=== PATIENT | male | born 1945 | race Caucasian/White ===

== ENCOUNTER 2016-08-19 07:44 | Day surgery (SDC) | payer MEDICARE, BC ==
[2016-08-19] MEDS ORDERED: Sodium Chloride 0.9% 5 ML Syringe FLUSH PRN (08:00)
[2016-08-19] MEDS ORDERED: Lactated Ringers 1,000 ML IV SCH (08:00)
[2016-08-19] MEDS ORDERED: Propofol 200 MG/20 ML SDV ONE ×2 (08:15→10:20)
[2016-08-19] MEDS ORDERED: Midazolam 1 MG/ML 2 ML SDV ONE ×2 (08:16→10:20)
[2016-08-19] MEDS ORDERED: fentaNYL 100 MCG/2 ML SDV ONE ×2 (08:16→10:20)
[2016-08-19] MEDS ORDERED: EPINEPHrine 1:10,000 1 MG/10 ML Syringe ONE (09:29)
[2016-08-19] MEDS ORDERED: EPINEPHrine 1:1000 1 MG/ML SDV ONE (09:30)
[2016-08-19] MEDS ORDERED: Ondansetron 4 MG/2 ML SDV ONE (10:20)
--- NOTE | 2016-08-19 10:43 | PCM.OPNOTE ---
- General Post-Op/Procedure Note Date of Surgery/Procedure: 08/19/16 Operative Procedure(s): Bilateral myringotomy Findings: Bilateral chronic serous otitis media is observed Pre Op Diagnosis: Chronic serous otitis media. Recurrent Post-Op Diagnosis: As above Anesthesia Technique: MAC Primary Surgeon: Ramon Lujan Complications: None Free Text/Narrative:: Preoperative diagnosis: Chronic serous otitis media bilaterally. Recurrent. Postoperative diagnosis: As above Procedure performed: Bilateral myringotomy. Procedure: informed consent was obtained and the patient regarding this procedure. He has had this done before. All possible complications were thoroughly discussed. anesthetic complications were addressed by the buildings and grounds supervisor. The patient was taken to the or and kept in the supine position. A satisfactory general Street was administered via nasal mask. The patient's head was turned to the left side. An ear speculum was placed into the right ear canal and using the otoscope, the tympanic membrane was clearly visualized. There was evidence of chronic otitis media present. Air bubbles are seen in the inferior portion of the tympanic membrane which was dull. the upper portion of the TM was retracted. A myringotomy incision was made in the inferior, posterior quadrant and a moderate quantity of gelatinous material was aspirated. The patient tolerated the procedure well. This procedure was repeated on the left side. This ear was not as bad as the right side. The patient tolerated the procedure well. he was transferred to the recover room in an excellent condition.
[2016-08-19 11:46] VITALS: BP 152/83
== END 2016-08-19 11:45 | disposition home or self-care (01) ==
LOC: KA.SDS 07:44
PROVIDERS: ATTEND Family Medicine
DX: H65.23 Chronic serous otitis media, bilateral (principal); E78.1 Pure hyperglyceridemia; K21.9 Gastro-esophageal reflux disease without esophagitis; N40.0 Benign prostatic hyperplasia without lower urinary tract symptoms; E78.5 Hyperlipidemia, unspecified
CPT/HCPCS: 00126; J2250; J2405; J2704; J3010; J7120

== ENCOUNTER 2017-09-22 09:59 | Day surgery (SDC) | payer MEDICARE, BC ==
[~2017-09-22 09:59] MED LIST: Lactated Ringers 1,000 ML IV SCH; Midazolam 1 MG/ML 2 ML SDV ONE; Propofol 200 MG/20 ML SDV ONE; Sodium Chloride 0.9% 5 ML Syringe FLUSH PRN; fentaNYL 100 MCG/2 ML SDV ONE
[2017-09-22] MEDS ORDERED: Bupivacaine 0.5%/EPINEPHrine 1:200,000 30 ML SDV ONE (10:26)
[2017-09-22] MEDS ORDERED: Ketamine 500 mg/10 ML MDV ONE (10:52)
[2017-09-22] MEDS ORDERED: Propofol 200 MG/20 ML SDV ONE (11:20)
[2017-09-22] MEDS ORDERED: methylPREDNISolone Sodium Succinate 125 MG/2 ML SDV ONE (11:27)
[2017-09-22] MEDS ORDERED: fentaNYL 100 MCG/2 ML SDV IV ONE (11:34)
[2017-09-22] MEDS ORDERED: ceFAZolin 1 GM Vial IV ONE (11:34)
[2017-09-22] MEDS ORDERED: Ketamine 500 mg/10 ML MDV IV ONE (11:34)
[2017-09-22] MEDS ORDERED: Midazolam 1 MG/ML 2 ML SDV IV ONE (11:34)
[2017-09-22] MEDS ORDERED: methylPREDNISolone Sodium Succinate 125 MG/2 ML SDV IV ONE (11:34)
[2017-09-22] MEDS ORDERED: Propofol 200 MG/20 ML SDV IV ONE (11:34)
[2017-09-22] MEDS ORDERED: Acetaminophen/HYDROcodone 325-10 MG Tab PO ONE (11:39)
[2017-09-22] MEDS ORDERED: Bupivacaine 0.5%/EPINEPHrine 1:200,000 30 ML SDV INFILT ONE (12:12)
[2017-09-22 16:03] VITALS: BP 166/68
== END 2017-09-22 14:30 | disposition home or self-care (01) ==
LOC: KA.SDS 09:59
PROVIDERS: ATTEND Family Medicine
DX: K64.8 Other hemorrhoids (principal); J30.2 Other seasonal allergic rhinitis; R05 Cough; N40.0 Benign prostatic hyperplasia without lower urinary tract symptoms; K21.9 Gastro-esophageal reflux disease without esophagitis; K52.9 Noninfective gastroenteritis and colitis, unspecified; E78.5 Hyperlipidemia, unspecified; K59.04 Chronic idiopathic constipation; E78.1 Pure hyperglyceridemia; Z79.899 Other long term (current) drug therapy
CPT/HCPCS: 00902; J0690; J2250; J2704; J2930; J3010; J7120